=== PATIENT | female | born 2000 | race Caucasian/White ===

== ENCOUNTER → 2023-02-10 | Outpatient (CLI) | payer OTHER ==
[2023-02-10 15:22] LABS: HEMATOCRIT 39.6 % (36.0-47.0); HEMOGLOBIN 12.1 g/dl (12.0-15.5); MEAN CORPUSCULAR HGB CONC 30.6 g/dl (32.0-36.5); MEAN CORPUSCULAR VOLUME 75.3 fl (80.0-96.0); PLATELET COUNT, AUTOMATED 259 10^3/uL (150-450); RED BLOOD COUNT 5.26 10^6/uL (4.00-5.40)
[2023-02-10 16:10] LABS: HIV 1&2 SCREEN NEGATIVE (NEGATIVE)
[2023-02-10 16:19] LABS: HEPATITIS C VIRUS ABY INDEX 0.08 INDEX (<0.8)
[2023-02-10 16:25] LABS: CHLAMYDIA DNA AMPLIFICATION NEGATIVE (NEGATIVE); GC DNA AMPLIFICATION NEGATIVE (NEGATIVE)
== END ==
LOC: M PLALAB 09:23
PROVIDERS: ATTEND Specialist
DX: Z34.01 Encounter for supervision of normal first pregnancy, first trimester (principal); Z3A.00 Weeks of gestation of pregnancy not specified

== ENCOUNTER → 2023-03-10 | Outpatient (REF) | payer BC | LOC: M PLALAB 13:42 | PROVIDERS: ATTEND Obstetrics & Gynecology | DX: Z34.01 Encounter for supervision of normal first pregnancy, first trimester (principal) ==

== ENCOUNTER → 2023-04-14 | Outpatient (CLI) | payer OTHER | LOC: M WHC 09:50 | PROVIDERS: ATTEND Obstetrics & Gynecology | DX: Z34.01 Encounter for supervision of normal first pregnancy, first trimester (principal) ==

== ENCOUNTER → 2023-05-21 | Outpatient (CLI) | payer OTHER | LOC: M WHC 07:18 | PROVIDERS: ATTEND Obstetrics & Gynecology | DX: Z36.2 Encounter for other antenatal screening follow-up (principal); Z3A.24 24 weeks gestation of pregnancy ==

== ENCOUNTER → 2023-06-09 | Outpatient (CLI) | payer OTHER ==
[2023-06-09 13:28] LABS: HEMATOCRIT 37.3 % (36.0-47.0); MEAN CORPUSCULAR HEMOGLOBIN 26.3 pg (27.0-33.0); MEAN CORPUSCULAR HGB CONC 32.2 g/dl (32.0-36.5); MEAN CORPUSCULAR VOLUME 81.8 fl (80.0-96.0); PLATELET COUNT, AUTOMATED 251 10^3/uL (150-450); RED BLOOD COUNT 4.56 10^6/uL (4.00-5.40); WHITE BLOOD COUNT 10.8 10^3/uL (4.0-10.0)
[2023-06-09 14:41] LABS: GC DNA AMPLIFICATION NEGATIVE (NEGATIVE)
== END ==
LOC: M PLALAB 10:12
PROVIDERS: ATTEND Obstetrics & Gynecology
DX: Z34.92 Encounter for supervision of normal pregnancy, unspecified, second trimester (principal)

== ENCOUNTER → 2023-06-23 | Outpatient (CLI) | payer OTHER | LOC: M LAB 07:51 | PROVIDERS: ATTEND Obstetrics & Gynecology | DX: O99.810 Abnormal glucose complicating pregnancy (principal) ==

== ENCOUNTER 2023-07-19 17:52 | Outpatient (CLI) | payer OTHER ==
[~2023-07-19] VITALS: Ht 162.6 cm; Wt 145.2 kg
[2023-07-19] MEDS ORDERED: PRENTAB9 PO (18:15)
[2023-07-19] MEDS ORDERED: HOME MED LIST COMPLETE! XX SCH (18:15)
[2023-07-19 18:18] VITALS: BP 129/78
[2023-07-19] MEDS ORDERED: metroNIDAZOLE (FLAGYL) 500MG TABLET PO ONE (19:05)
[2023-07-19] MEDS ORDERED: METR-265 PO (19:24)
[2023-07-19 19:45] LABS: APPEARANCE, URINE HAZY (CLEAR); BACTERIA, URINE AUTO NEGATIVE (NEGATIVE); BILIRUBIN, URINE AUTO NEGATIVE (NEGATIVE); BLOOD, URINE BLOOD NEGATIVE (NEGATIVE); COLOR, URINE YELLOW (YELLOW); GLUCOSE, URINE (UA) AUTO NEGATIVE (NEGATIVE); KETONE, URINE AUTO 1+ mg/dL (NEGATIVE); LEUKOCYTE ESTERASE, URINE AUTO 2+ (NEGATIVE); MUCUS, URINE SMALL (NEGATIVE); NITRITE, URINE AUTO NEGATIVE (NEGATIVE); PROTEIN, URINE AUTO 1+ mg/dL (NEGATIVE); RBC, URINE AUTO 1 /HPF (0-3); SPECIFIC GRAVITY URINE AUTO 1.025 (1.002-1.035); SQUAMOUS EPITHELIAL CELL UR AU 11 /HPF (0-6); UROBILINOGEN, URINE AUTO 0.2 mg/dL (0.0-2.0); WBC, URINE AUTO 13 /HPF (0-3)
== END 2023-07-19 19:32 | disposition home or self-care (01) ==
LOC: M LDO 17:52
PROVIDERS: ATTEND Advanced Practice Midwife
DX: O23.593 Infection of other part of genital tract in pregnancy, third trimester (principal); Z3A.32 32 weeks gestation of pregnancy
CPT/HCPCS: 59025; 81001; 87070; 87077; 87086; 87186; G0463

== ENCOUNTER → 2023-07-23 | Outpatient (CLI) | payer OTHER ==
[~2023-07-23] MED LIST: METR-265 PO; PRENTAB9 PO
== END ==
LOC: M RAD 13:20
PROVIDERS: ATTEND Obstetrics & Gynecology
DX: O24.414 Gestational diabetes mellitus in pregnancy, insulin controlled (principal)

== ENCOUNTER → 2023-08-04 | Outpatient (REF) | payer OTHER | LOC: M SFHCWAGY 14:55 | PROVIDERS: ATTEND Obstetrics & Gynecology | DX: Z34.90 Encounter for supervision of normal pregnancy, unspecified, unspecified trimester (principal); Z36.85 Encounter for antenatal screening for Streptococcus B ==

== ENCOUNTER → 2023-08-09 | Outpatient (CLI) | payer OTHER | LOC: M RAD 07:42 | PROVIDERS: ATTEND Obstetrics & Gynecology | DX: O24.414 Gestational diabetes mellitus in pregnancy, insulin controlled (principal); Z3A.35 35 weeks gestation of pregnancy ==

== ENCOUNTER 2023-08-13 15:04 | Outpatient (CLI) | payer OTHER ==
[~2023-08-13] VITALS: Ht 162.6 cm; Wt 149.2 kg
[2023-08-13] MEDS ORDERED: TUMS500C PO (15:29)
[2023-08-13] MEDS ORDERED: ACET325C5 PO (15:29)
[2023-08-13] MEDS ORDERED: NOVO1INJ4 SC (15:31)
[2023-08-13] MEDS ORDERED: HOME MED LIST COMPLETE! XX SCH (15:35)
[2023-08-13 15:41] VITALS: BP 125/76; O2SAT 96
[2023-08-13 15:42] VITALS: O2SAT 97
== END 2023-08-13 18:05 | disposition home or self-care (01) ==
LOC: M LDO 15:04
PROVIDERS: ATTEND Advanced Practice Midwife
DX: O36.8339 Maternal care for abnormalities of the fetal heart rate or rhythm, third trimester, other fetus (principal); O24.414 Gestational diabetes mellitus in pregnancy, insulin controlled; O13.3 Gestational [pregnancy-induced] hypertension without significant proteinuria, third trimester; Z88.1 Allergy status to other antibiotic agents; Z3A.36 36 weeks gestation of pregnancy
CPT/HCPCS: 59025; 76815; 76819; 76820; G0463

== ENCOUNTER → 2023-09-16 | Outpatient (REF) | payer OTHER ==
[~2023-09-16] MED LIST changes: +ACET325C5 PO; +COLA100C5 PO; +IBUP80TA PO; +NOVO1INJ4 SC; +OXYC1TAB23 PO; +TUMS500C PO
== END ==
LOC: M SFHCWAGY 12:23
PROVIDERS: ATTEND Nurse Practitioner Family
DX: N73.9 Female pelvic inflammatory disease, unspecified (principal)